=== PATIENT | male | born 1985 | race Caucasian/White ===

== ENCOUNTER → 2022-01-14 | Outpatient (CLI) | payer BC ==
--- NOTE | 2022-01-14 08:29 | US ---
EXAMINATION TYPE: US abdomen limited DATE OF EXAM: 01/14/2022 COMPARISON: NONE CLINICAL HISTORY: 36-year-old male R10.84 Generalized abdominal pain. TECHNIQUE: Multiple sonographic images of the right upper quadrant are obtained. FINDINGS: EXAM MEASUREMENTS: Liver Length: 13 cm Gallbladder Wall: .2 cm CBD: .4 cm Right Kidney: 9.6 x 4.9 x 5.5 cm Pancreas: Only portions of the pancreatic head in neck are visualized. The body and tail are obscure d by bowel gas shadowing. Liver: wnl Gallbladder: wnl Evidence for sonographic Chambers's sign: no CBD: wnl Right Kidney: wnl IMPRESSION: Suboptimal visualization of portions of the pancreas. Otherwise, unremarkable sonographic examination of the right upper quadrant.
== END | disposition home or self-care (01) ==
LOC: RADUSWWP 07:05
PROVIDERS: ATTEND Internal Medicine
DX: R10.84 Generalized abdominal pain (principal)
CPT/HCPCS: 76705